=== PATIENT | female | born 1965 | race Caucasian/White ===

== ENCOUNTER 2017-09-01 11:38 | Inpatient (IN) | payer OTHER ==
[2017-09-01] VITALS (420 sets, daily range): BP systolic 131–140; BP diastolic 66–68; PULSE 88–92; TEMP 98.1–98.3; O2SAT 86–100
[~2017-09-01] VITALS: Ht 167.6 cm; Wt 80.4 kg
[~2017-09-01 11:38] MED LIST: AMARYL4 MG PO; ASPIRIN E.C. 8181 MG PO; BIOTIN FORTE3 MG PO; FORTAMET1000 MG PO; GEMCOR600 MG PO; LANTUS100 U/ML; LOTENSIN PO; LOVAZA1 GM PO; MOTRIN 800800 MG/TAB PO; NITROSTAT0.4 MG/TAB SL; NOVOLIN N100 U/ML SC; PHENERGAN 25 TA25 MG PO; PRAVACHOL 40MG40 MG PO; PROZAC 20MG20 MG PO; THERAPEUTIC VIT1 CAP PO; TOPROL XL 25MG25 MG PO; VICODIN 5/5001 UDTAB PO
[2017-09-01 13:58] LABS: ALBUMIN 3.6 gm/dL (3.5-5.0); BILIRUBIN,TOTAL 0.4 mg/dL (0.0-1.0); CALCIUM 9.4 mg/dL (8.4-10.2); CREATININE, serum 1.06 mg/dL (0.52-1.25); POTASSIUM 5.6 mmol/L (3.4-5.0); TOTAL PROTEIN 7.3 gm/dL (6.4-8.2)
[2017-09-01 14:22] LABS: LIPASE 754 U/L (23-300)
[2017-09-01] MEDS ORDERED: HUMALOG100 U/ML SQ (14:28)
[2017-09-01 14:29] LABS: TROPONIN-I < 0.012 ng/mL (0.000-0.034)
[2017-09-01] MEDS ORDERED: BASAGLAR K100 UNIT/1 SQ (14:30)
[2017-09-01] MEDS ORDERED: VASCEPA1 GM PO (16:16)
[2017-09-01] MEDS ORDERED: HYZAAR 25 MG-101 TAB PO (16:17)
[2017-09-01 16:30] LABS: MAGNESIUM 1.3 mg/dL (1.6-2.3); PHOSPHOROUS 4.1 mg/dL (2.5-4.5)
[2017-09-02] VITALS (1296 sets, daily range): BP systolic 107–169; BP diastolic 44–86; PULSE 90–106; TEMP 97.6–98.2; O2SAT 73–100
[2017-09-02 05:42] LABS: BASO # 0.1 (0.0-0.2); BASO % 0.5 % (0.0-2.0); EOS # 0.2 (0.0-0.7); EOS % 1.9 % (0-4.0); GRAN # 9.5 (1.4-6.5); GRAN % 76.1 % (42.2-75.2); LYMPH # 1.7 (1.2-3.4); LYMPH % 13.3 % (20.0-51.0); MEAN CELL VOLUME 87 fl (80.0-100.0); MEAN CORPUSCULAR HGB CONC 33 g/dl (33.0-37.0); MONO % 7.8 % (1.7-9.3); PLATELET COUNT 234 K/mm3 (130-400); RED BLOOD COUNT 2.93 M/mm3 (4.10-5.30); REDCELL DISTRIBUTION WIDTH-CV 13.9 % (11.5-14.5)
[2017-09-02 05:54] LABS: HEMATOCRIT 25.5 % (37.0-47.0); HEMOGLOBIN 8.5 g/dl (12.5-16.0); MEAN CORPUSCULAR HEMOGLOBIN 29 pg (27.0-31.0)
[2017-09-02 06:00] LABS: CALCIUM 7.7 mg/dL (8.4-10.2); CREATININE, serum 0.7 mg/dL (0.52-1.25); POTASSIUM 4.5 mmol/L (3.4-5.0)
[2017-09-03] VITALS (741 sets, daily range): BP systolic 132–150; BP diastolic 62–78; PULSE 78–97; TEMP 97.7–101.6; O2SAT 71–100
[2017-09-03 05:51] LABS: MEAN CELL VOLUME 89 fl (80.0-100.0); MEAN CORPUSCULAR HGB CONC 32 g/dl (33.0-37.0); MEAN PLATELET VOLUME 9.1 fl (7.4-10.4); PLATELET COUNT 252 K/mm3 (130-400); RED BLOOD COUNT 2.85 M/mm3 (4.10-5.30); REDCELL DISTRIBUTION WIDTH-CV 14.1 % (11.5-14.5)
[2017-09-03 06:04] LABS: HEMATOCRIT 25.4 % (37.0-47.0); HEMOGLOBIN 8.2 g/dl (12.5-16.0); MEAN CORPUSCULAR HEMOGLOBIN 29 pg (27.0-31.0)
[2017-09-03 06:07] LABS: ALBUMIN 2.8 gm/dL (3.5-5.0); BILIRUBIN,TOTAL 0.3 mg/dL (0.0-1.0); CALCIUM 7.6 mg/dL (8.4-10.2); CREATININE, serum 0.65 mg/dL (0.52-1.25); MAGNESIUM 2.1 mg/dL (1.6-2.3); PHOSPHOROUS 2.9 mg/dL (2.5-4.5); POTASSIUM 4.9 mmol/L (3.4-5.0); TOTAL PROTEIN 6.2 gm/dL (6.4-8.2)
[2017-09-03 11:25] LABS: IRON,SERUM 11 ug/dL (35-150)
[2017-09-03 11:34] LABS: TOTAL IRON BINDING CAPACITY 223 ug/dL (265-497)
[2017-09-03 12:00] LABS: FERRITIN 263 ng/mL (11-264)
[2017-09-03 12:13] LABS: PH 5 (5-8); SQUAMOUS EPITHELIAL None Seen /hpf; URINE APPEARANCE Clear; URINE BACTERIA Rare /hpf; URINE BILIRUBIN Negative (NEGATIVE); URINE BLOOD Negative (NEGATIVE); URINE COLOR Yellow; URINE GLUCOSE 1+ (NEGATIVE); URINE KETONE Negative (NEGATIVE); URINE LEUKOCYTE ESTERASE Negative (NEGATIVE); URINE NITRATE Negative (NEGATIVE); URINE PROTEIN(semi-quant) 2+ (NEGATIVE); URINE RBC 0-2 /hpf; URINE UROBILINOGEN Negative (NEGATIVE); URINE WBC 0-2 /hpf
[2017-09-03 12:15] LABS: COLLECTION METHOD CLEAN CATCH
[2017-09-04] VITALS (58 sets, daily range): BP systolic 127–174; BP diastolic 67–83; PULSE 68–95; TEMP 97.9–98.8; O2SAT 88–97
[2017-09-04 05:56] LABS: BASO % 0.3 % (0.0-2.0); EOS # 0.4 (0.0-0.7); EOS % 3.6 % (0-4.0); GRAN # 9.7 (1.4-6.5); GRAN % 78.1 % (42.2-75.2); HEMATOCRIT 24.4 % (37.0-47.0); HEMOGLOBIN 7.9 g/dl (12.5-16.0); LYMPH # 1.3 (1.2-3.4); LYMPH % 10.7 % (20.0-51.0); MEAN CELL VOLUME 88 fl (80.0-100.0); MEAN CORPUSCULAR HEMOGLOBIN 29 pg (27.0-31.0); MEAN CORPUSCULAR HGB CONC 32 g/dl (33.0-37.0); MEAN PLATELET VOLUME 9.1 fl (7.4-10.4); MONO # 0.8 (0.1-0.6); MONO % 6.6 % (1.7-9.3); PLATELET COUNT 264 K/mm3 (130-400); RED BLOOD COUNT 2.76 M/mm3 (4.10-5.30); REDCELL DISTRIBUTION WIDTH-CV 13.9 % (11.5-14.5)
[2017-09-04 06:02] LABS: CALCIUM 7.7 mg/dL (8.4-10.2); CREATININE, serum 0.54 mg/dL (0.52-1.25); POTASSIUM 4.7 mmol/L (3.4-5.0)
[2017-09-05] VITALS (7 sets, daily range): BP systolic 125–173; BP diastolic 70–83; PULSE 85–98; TEMP 97.5–98.8
[2017-09-05 05:38] LABS: ALANINE AMINOTRANSFERASE 44 U/L (9-52); ALBUMIN 2.9 gm/dL (3.5-5.0); ALKALINE PHOSPHATASE 143 U/L (50-136); ANION GAP 8 mmol/L (7-16); AST,SGOT 31 U/L (15-37); BILIRUBIN,TOTAL 0.5 mg/dL (0.0-1.0); BLOOD UREA NITROGEN 4 mg/dL (7-17); CALCIUM 7.8 mg/dL (8.4-10.2); CARBON DIOXIDE 19 mmol/L (22-30); CHLORIDE 106 mmol/L (98-107); CHOLESTEROL 325 mg/dL (120-200); CHOLESTEROL RISK RATIO 11.6; CREATININE, serum 0.56 mg/dL (0.52-1.25); GLUCOSE 195 mg/dL (74-106); LIPASE 63 U/L (23-300); MAGNESIUM 1.5 mg/dL (1.6-2.3); POTASSIUM 4.9 mmol/L (3.4-5.0); SODIUM 133 mmol/L (137-145); TOTAL PROTEIN 6.7 gm/dL (6.4-8.2)
[2017-09-05 05:43] LABS: BASO # 0.1 (0.0-0.2); BASO % 0.5 % (0.0-2.0); EOS # 0.4 (0.0-0.7); EOS % 3.5 % (0-4.0); GRAN # 9.6 (1.4-6.5); GRAN % 77.7 % (42.2-75.2); HEMATOCRIT 25.2 % (37.0-47.0); HEMOGLOBIN 7.9 g/dl (12.5-16.0); LYMPH # 1.2 (1.2-3.4); LYMPH % 9.9 % (20.0-51.0); MEAN CELL VOLUME 90 fl (80.0-100.0); MEAN CORPUSCULAR HEMOGLOBIN 28 pg (27.0-31.0); MEAN CORPUSCULAR HGB CONC 31 g/dl (33.0-37.0); MEAN PLATELET VOLUME 9.3 fl (7.4-10.4); MONO # 0.9 (0.1-0.6); MONO % 7.4 % (1.7-9.3); PLATELET COUNT 315 K/mm3 (130-400); RED BLOOD COUNT 2.79 M/mm3 (4.10-5.30); REDCELL DISTRIBUTION WIDTH-CV 13.8 % (11.5-14.5)
[2017-09-05 05:48] LABS: TRIGLYCERIDE 649 mg/dL
[2017-09-06 03:20] VITALS: BP 176/82; PULSE 88; TEMP 99.1
[2017-09-06 06:34] LABS: MEAN CELL VOLUME 89 fl (80.0-100.0); MEAN CORPUSCULAR HGB CONC 32 g/dl (33.0-37.0); MEAN PLATELET VOLUME 9.4 fl (7.4-10.4); PLATELET COUNT 377 K/mm3 (130-400); REDCELL DISTRIBUTION WIDTH-CV 13.7 % (11.5-14.5)
[2017-09-06 06:39] LABS: HEMATOCRIT 26.8 % (37.0-47.0); HEMOGLOBIN 8.5 g/dl (12.5-16.0); MEAN CORPUSCULAR HEMOGLOBIN 28 pg (27.0-31.0)
[2017-09-06 06:51] LABS: CALCIUM 8.6 mg/dL (8.4-10.2); CREATININE, serum 0.55 mg/dL (0.52-1.25); MAGNESIUM 1.4 mg/dL (1.6-2.3); POTASSIUM 4.8 mmol/L (3.4-5.0)
[2017-09-06 07:17] LABS: BAND 10 % (0-10); EOSINOPHIL 3 % (0-4); LYMPHOCYTE 15 % (20.0-51.0); NEUTROPHILS 69 % (42.0-75.2)
[2017-09-06 07:18] LABS: HYPOCHROMIA 2+; PLATELET ESTIMATE NORMAL (NORMAL)
[2017-09-06 07:35] VITALS: BP 166/80; PULSE 92; TEMP 100.6
[2017-09-06 12:04] VITALS: BP 139/71; PULSE 81; TEMP 101.1
[2017-09-06 16:44] VITALS: BP 153/72; PULSE 88; TEMP 100.3
[2017-09-06 19:21] LABS: MUCOUS Present /lpf; PH 5 (5-8); SQUAMOUS EPITHELIAL 0-2 /hpf; URINE APPEARANCE Clear; URINE BACTERIA None Seen /hpf; URINE BILIRUBIN Negative (NEGATIVE); URINE BLOOD Negative (NEGATIVE); URINE COLOR Yellow; URINE GLUCOSE 1+ (NEGATIVE); URINE KETONE 1+ (NEGATIVE); URINE LEUKOCYTE ESTERASE Negative (NEGATIVE); URINE NITRATE Negative (NEGATIVE); URINE PROTEIN(semi-quant) 2+ (NEGATIVE); URINE RBC 0-2 /hpf; URINE UROBILINOGEN Negative (NEGATIVE)
[2017-09-06 19:24] LABS: COLLECTION METHOD CLEAN CATCH
[2017-09-06 20:01] VITALS: BP 142/66; PULSE 80; TEMP 99
[2017-09-07] VITALS (8 sets, daily range): BP systolic 130–181; BP diastolic 62–86; PULSE 57–84; TEMP 97.5–100.3
[2017-09-07 06:59] LABS: BASO # 0.1 (0.0-0.2); BASO % 0.6 % (0.0-2.0); EOS # 0.3 (0.0-0.7); EOS % 3.1 % (0-4.0); GRAN % 75.2 % (42.2-75.2); LYMPH # 1.1 (1.2-3.4); LYMPH % 10.6 % (20.0-51.0); MEAN CELL VOLUME 87 fl (80.0-100.0); MEAN CORPUSCULAR HGB CONC 33 g/dl (33.0-37.0); MEAN PLATELET VOLUME 9.6 fl (7.4-10.4); MONO # 0.7 (0.1-0.6); MONO % 6.6 % (1.7-9.3); PLATELET COUNT 450 K/mm3 (130-400); RED BLOOD COUNT 2.92 M/mm3 (4.10-5.30); REDCELL DISTRIBUTION WIDTH-CV 13.6 % (11.5-14.5)
[2017-09-07 07:04] LABS: ALBUMIN 3.1 gm/dL (3.5-5.0); BILIRUBIN,TOTAL 0.3 mg/dL (0.0-1.0); CALCIUM 8.9 mg/dL (8.4-10.2); CREATININE, serum 0.56 mg/dL (0.52-1.25); MAGNESIUM 1.5 mg/dL (1.6-2.3); POTASSIUM 3.8 mmol/L (3.4-5.0)
[2017-09-07 07:14] LABS: HEMATOCRIT 25.3 % (37.0-47.0); HEMOGLOBIN 8.3 g/dl (12.5-16.0); MEAN CORPUSCULAR HEMOGLOBIN 28 pg (27.0-31.0)
[2017-09-07 14:36] LABS: INR 1.2 (0.8-3.0); PROTHROMBIN TIME 14.3 SECONDS (9.7-12.8)
[2017-09-08 03:56] VITALS: BP 161/62; PULSE 65; TEMP 97.7
[2017-09-08 07:13] LABS: MEAN CELL VOLUME 87 fl (80.0-100.0); MEAN CORPUSCULAR HGB CONC 32 g/dl (33.0-37.0); MEAN PLATELET VOLUME 9.5 fl (7.4-10.4); PLATELET COUNT 519 K/mm3 (130-400); RED BLOOD COUNT 3.28 M/mm3 (4.10-5.30); REDCELL DISTRIBUTION WIDTH-CV 13.6 % (11.5-14.5)
[2017-09-08 07:21] LABS: HEMATOCRIT 28.5 % (37.0-47.0); HEMOGLOBIN 9.2 g/dl (12.5-16.0); MEAN CORPUSCULAR HEMOGLOBIN 28 pg (27.0-31.0)
[2017-09-08 07:24] LABS: ALBUMIN 3.3 gm/dL (3.5-5.0); BILIRUBIN,TOTAL 0.3 mg/dL (0.0-1.0); CALCIUM 9.3 mg/dL (8.4-10.2); CREATININE, serum 0.58 mg/dL (0.52-1.25); POTASSIUM 3.4 mmol/L (3.4-5.0); TOTAL PROTEIN 7.9 gm/dL (6.4-8.2)
[2017-09-08 07:52] VITALS: BP 177/74; PULSE 83; TEMP 100.4
[2017-09-08 08:05] LABS: BAND 32 % (0-10); BASOPHIL 2 % (0-2); EOSINOPHIL 4 % (0-4); LYMPHOCYTE 14 % (20.0-51.0); NEUTROPHILS 45 % (42.0-75.2)
[2017-09-08 08:06] LABS: PLATELET ESTIMATE INCREASED (NORMAL); POLYCHROMASIA 1+
[2017-09-08 12:15] VITALS: BP 145/73; PULSE 73; TEMP 98.4
[2017-09-08 16:16] VITALS: BP 166/62; PULSE 79; TEMP 99.1
[2017-09-08 20:37] VITALS: BP 168/67; PULSE 80; TEMP 98.9
[2017-09-09 00:07] VITALS: BP 160/70; PULSE 67; TEMP 98
[2017-09-09 05:15] VITALS: BP 170/68; PULSE 72; TEMP 98.4
[2017-09-09 07:05] LABS: MEAN CELL VOLUME 87 fl (80.0-100.0); MEAN CORPUSCULAR HGB CONC 32 g/dl (33.0-37.0); MEAN PLATELET VOLUME 9.5 fl (7.4-10.4); PLATELET COUNT 518 K/mm3 (130-400); RED BLOOD COUNT 3.28 M/mm3 (4.10-5.30); REDCELL DISTRIBUTION WIDTH-CV 13.6 % (11.5-14.5)
[2017-09-09 07:06] LABS: HEMATOCRIT 28.5 % (37.0-47.0); HEMOGLOBIN 9.2 g/dl (12.5-16.0); MEAN CORPUSCULAR HEMOGLOBIN 28 pg (27.0-31.0)
[2017-09-09 07:11] LABS: CALCIUM 9.3 mg/dL (8.4-10.2); CREATININE, serum 0.64 mg/dL (0.52-1.25); POTASSIUM 3.9 mmol/L (3.4-5.0)
[2017-09-09 07:42] LABS: ALBUMIN 3.2 gm/dL (3.5-5.0); BILIRUBIN,TOTAL 0.3 mg/dL (0.0-1.0); TOTAL PROTEIN 7.3 gm/dL (6.4-8.2)
[2017-09-09 07:44] VITALS: BP 172/71; PULSE 77; TEMP 98.9
[2017-09-09 07:51] LABS: BILIRUBIN,DIRECT 0.2 mg/dL (0.0-0.4)
[2017-09-09 08:55] LABS: BAND 2 % (0-10); LYMPHOCYTE 27 % (20.0-51.0); NEUTROPHILS 69 % (42.0-75.2); PLATELET ESTIMATE INCREASED (NORMAL)
[2017-09-09 11:43] VITALS: BP 153/66; PULSE 64; TEMP 98.5
[2017-09-09] MEDS ORDERED: FLAGYL500 MG PO (13:04)
[2017-09-09] MEDS ORDERED: CIPRO 500MG TA500 MG PO (13:06)
[2017-09-09] MEDS ORDERED: NORCO 325 MG-51 TAB PO (13:09)
== END 2017-09-09 15:00 | disposition home or self-care (01) | DRG 439 ==
LOC: COL.ER 11:38 → ICU 15:07 → MEDICAL 09-05 13:49
PROVIDERS: Emergency Medicine; Nurse Practitioner Family; Physician Assistant
DX: K85.90 Acute pancreatitis without necrosis or infection, unspecified (principal); J90 Pleural effusion, not elsewhere classified; E11.9 Type 2 diabetes mellitus without complications; E83.42 Hypomagnesemia; E87.5 Hyperkalemia; E78.1 Pure hyperglyceridemia; I10 Essential (primary) hypertension; Z79.4 Long term (current) use of insulin; F17.210 Nicotine dependence, cigarettes, uncomplicated; D50.0 Iron deficiency anemia secondary to blood loss (chronic); K42.9 Umbilical hernia without obstruction or gangrene
CPT/HCPCS: 99223-AI; 99232-AI; 99233-AI; 99239; A9284; C9113; J0696; J1170; J1650; J1815; J1940; J2405; J2916; J3475; J3480; J7030; Q9967

== ENCOUNTER 2017-10-03 17:54 | Emergency (ER) | payer OTHER ==
[~2017-10-03 17:54] MED LIST changes: +BASAGLAR K100 UNIT/1 SQ; +CIPRO 500MG TA500 MG PO; +FLAGYL500 MG PO; +HUMALOG100 U/ML SQ; +HYZAAR 25 MG-101 TAB PO; +NORCO 325 MG-51 TAB PO; +VASCEPA1 GM PO
[2017-10-03 18:29] LABS: BASO # 0.1 (0.0-0.2); BASO % 1.2 % (0.0-2.0); EOS # 0.2 (0.0-0.7); EOS % 2.8 % (0-4.0); GRAN # 4.6 (1.4-6.5); GRAN % 60.2 % (42.2-75.2); LYMPH % 26.9 % (20.0-51.0); MEAN CELL VOLUME 91 fl (80.0-100.0); MEAN CORPUSCULAR HGB CONC 32 g/dl (33.0-37.0); MONO # 0.7 (0.1-0.6); MONO % 8.6 % (1.7-9.3); PLATELET COUNT 250 K/mm3 (130-400)
[2017-10-03 18:30] VITALS: TEMP 97
[2017-10-03 18:32] LABS: HEMATOCRIT 30.8 % (37.0-47.0); HEMOGLOBIN 9.9 g/dl (12.5-16.0); MEAN CORPUSCULAR HEMOGLOBIN 29 pg (27.0-31.0)
[2017-10-03 18:36] LABS: ALBUMIN 4.3 gm/dL (3.5-5.0); BILIRUBIN,TOTAL 0.2 mg/dL (0.0-1.0); CREATININE, serum 0.92 mg/dL (0.52-1.25); POTASSIUM 5.4 mmol/L (3.4-5.0); TOTAL PROTEIN 8.7 gm/dL (6.4-8.2)
[2017-10-03 20:06] VITALS: BP 140/83; PULSE 68
== END 2017-10-03 20:11 | disposition home or self-care (01) ==
LOC: COL.ER 17:54
PROVIDERS: Emergency Medicine
DX: R41.0 Disorientation, unspecified (principal); T38.3X5A Adverse effect of insulin and oral hypoglycemic [antidiabetic] drugs, initial encounter; E78.5 Hyperlipidemia, unspecified; E11.649 Type 2 diabetes mellitus with hypoglycemia without coma; I10 Essential (primary) hypertension; Z79.82 Long term (current) use of aspirin; Z79.84 Long term (current) use of oral hypoglycemic drugs
CPT/HCPCS: J7030

== ENCOUNTER → 2018-10-04 | Outpatient (CLI) | payer OTHER | LOC: SUN.DIA 14:03 | DX: O24.419 Gestational diabetes mellitus in pregnancy, unspecified control (principal); E11.40 Type 2 diabetes mellitus with diabetic neuropathy, unspecified; E78.5 Hyperlipidemia, unspecified; I10 Essential (primary) hypertension | CPT/HCPCS: G0108 ==

== ENCOUNTER → 2018-10-13 | Outpatient (CLI) | payer OTHER | LOC: SUN.DIA 08:42 | DX: E11.40 Type 2 diabetes mellitus with diabetic neuropathy, unspecified (principal); E78.5 Hyperlipidemia, unspecified; I10 Essential (primary) hypertension; Z79.4 Long term (current) use of insulin | CPT/HCPCS: G0108 ==

== ENCOUNTER → 2018-10-26 | Outpatient (CLI) | payer OTHER | LOC: SUN.DIA 09:57 | DX: E11.40 Type 2 diabetes mellitus with diabetic neuropathy, unspecified (principal); E78.5 Hyperlipidemia, unspecified; I10 Essential (primary) hypertension | CPT/HCPCS: G0109 ==

== ENCOUNTER → 2018-11-02 | Outpatient (CLI) | payer OTHER | LOC: SUN.DIA 11:39 | DX: E11.40 Type 2 diabetes mellitus with diabetic neuropathy, unspecified (principal); E78.5 Hyperlipidemia, unspecified; I10 Essential (primary) hypertension; Z79.4 Long term (current) use of insulin | CPT/HCPCS: G0109 ==

== ENCOUNTER → 2018-11-08 | Outpatient (CLI) | payer OTHER | LOC: SUN.DIA 08:48 | DX: E11.9 Type 2 diabetes mellitus without complications (principal); E78.5 Hyperlipidemia, unspecified; I10 Essential (primary) hypertension; E11.40 Type 2 diabetes mellitus with diabetic neuropathy, unspecified; Z79.4 Long term (current) use of insulin | CPT/HCPCS: G0108 ==

== ENCOUNTER → 2018-11-09 | Outpatient (CLI) | payer OTHER | LOC: SUN.DIA 14:43 | DX: E11.9 Type 2 diabetes mellitus without complications (principal); I10 Essential (primary) hypertension; E78.5 Hyperlipidemia, unspecified; E11.40 Type 2 diabetes mellitus with diabetic neuropathy, unspecified | CPT/HCPCS: G0109 ==

== ENCOUNTER → 2018-11-16 | Outpatient (CLI) | payer OTHER | LOC: SUN.DIA 11:15 → DIA.ED 18:00 → SUN.DIA 18:00 | DX: E11.40 Type 2 diabetes mellitus with diabetic neuropathy, unspecified (principal); E78.5 Hyperlipidemia, unspecified; I10 Essential (primary) hypertension; Z79.4 Long term (current) use of insulin | CPT/HCPCS: G0109 ==

== ENCOUNTER → 2018-12-14 | Outpatient (CLI) | payer OTHER | LOC: DIA.ED 13:52 | DX: E11.9 Type 2 diabetes mellitus without complications (principal); Z79.4 Long term (current) use of insulin; E11.40 Type 2 diabetes mellitus with diabetic neuropathy, unspecified; E78.5 Hyperlipidemia, unspecified | CPT/HCPCS: G0108 ==

== ENCOUNTER → 2019-01-10 | Outpatient (CLI) | payer OTHER | LOC: DIA.ED 09:27 | DX: E11.9 Type 2 diabetes mellitus without complications (principal); E78.5 Hyperlipidemia, unspecified; I10 Essential (primary) hypertension; E11.40 Type 2 diabetes mellitus with diabetic neuropathy, unspecified; Z79.4 Long term (current) use of insulin | CPT/HCPCS: G0108 ==

== ENCOUNTER → 2019-03-14 | Outpatient (CLI) | payer OTHER | LOC: DIA.ED 09:22 | DX: E11.40 Type 2 diabetes mellitus with diabetic neuropathy, unspecified (principal); E78.5 Hyperlipidemia, unspecified; I10 Essential (primary) hypertension; Z79.4 Long term (current) use of insulin | CPT/HCPCS: G0108 ==

== ENCOUNTER → 2019-06-19 | Outpatient (CLI) | payer OTHER | LOC: DIA.ED 14:51 | DX: Z02.89 Encounter for other administrative examinations (principal) ==

== ENCOUNTER → 2019-08-03 | Outpatient (CLI) | payer OTHER | LOC: COL.LAB 17:32 | DX: R07.89 Other chest pain (principal) ==

== ENCOUNTER 2020-10-21 19:12 | Inpatient (IN) | payer OTHER ==
[~2020-10-21] VITALS: Ht 167.6 cm; Wt 79.0 kg
[~2020-10-21 19:12] MED LIST changes: +MULTIVITAMIN FO1 CAP PO; -THERAPEUTIC VIT1 CAP PO
[2020-10-21] MEDS ORDERED: EPA FISH OIL1 SGL PO (19:51)
[2020-10-21] MEDS ORDERED: COZAAR100 MG PO (19:54)
[2020-10-21] MEDS ORDERED: NATURAL IRON65 MG (19:56)
[2020-10-21] MEDS ORDERED: AMARYL4 MG PO (19:57)
[2020-10-21] MEDS ORDERED: JARDIANCE10 (19:57)
[2020-10-21] MEDS ORDERED: LOFIBRA160 MG PO (19:58)
[2020-10-21] MEDS ORDERED: HCTZ 25MG TAB25 MG PO (19:58)
[2020-10-21] MEDS ORDERED: PRAVACHOL 40MG40 MG PO (19:59)
[2020-10-21 20:12] LABS: ALBUMIN 4.4 gm/dL (3.5-5.0); BILIRUBIN,TOTAL 0.3 mg/dL (0.0-1.0); CALCIUM 8.9 mg/dL (8.4-10.2); CREATININE, serum 1.1 (0.52-1.25); POTASSIUM 4.1 mmol/L (3.4-5.0)
[2020-10-21 20:13] LABS: BASO # 0.1 (0.0-0.2); EOS # 0.3 (0.0-0.7); EOS % 3.8 % (0-4.0); GRAN % 59.3 % (42.2-75.2); HEMOGLOBIN 11.4 g/dl (12.5-16.0); LYMPH # 1.8 (1.2-3.4); MEAN CELL VOLUME 88 fl (80.0-100.0); MEAN CORPUSCULAR HEMOGLOBIN 30 pg (27.0-31.0); MEAN CORPUSCULAR HGB CONC 34 g/dl (33.0-37.0); MEAN PLATELET VOLUME 9.9 fl (7.4-10.4); MONO # 0.5 (0.1-0.6); MONO % 7.6 % (1.7-9.3); PLATELET COUNT 357 K/mm3 (130-400); RED BLOOD COUNT 3.87 M/mm3 (4.10-5.30); REDCELL DISTRIBUTION WIDTH-CV 14.4 % (11.5-14.5)
--- NOTE | 2020-10-21 20:55 | NUR ---
PT ARRIVES VIA CART TO ROOM 325.
[2020-10-21 21:16] VITALS: BP 169/63; PULSE 80; TEMP 97.8
--- NOTE | 2020-10-21 22:01 | NUR ---
MEDICATED WITH HS MEDS, FLEXERIL AND MORPHINE 2MG IVP AT THIS TIME. PAIN TO RIGHT LEG AND SHOULDER 10/10. IS ALERT AND ORIENTED X4.
--- NOTE | 2020-10-21 22:11 | NUR ---
NORCO 1 TAB PO GIVEN FOR PAIN TO RT SHOULDER AND RT LEG. ADMISSION QUESTIONS COMPLETED.
[2020-10-21] MEDS ORDERED: GLUCOPHAGE1000 MG PO (22:27)
[2020-10-21] MEDS ORDERED: TOUJEO300 U/ML SQ (22:27)
[2020-10-21] MEDS ORDERED: TOPROL XL 50MG50 MG PO (22:31)
--- NOTE | 2020-10-21 22:57 | NUR ---
#16fr Oconnell inserted and placed to BSD. Immediate return of yellow urine.
[2020-10-21 23:05] LABS: COLLECTION METHOD CLEAN CATCH
[2020-10-21 23:12] LABS: MUCOUS Present /lpf; PH 5 (5-8); SQUAMOUS EPITHELIAL 0-2 /hpf; URINE APPEARANCE Hazy; URINE BACTERIA None Seen /hpf; URINE BILIRUBIN Negative (NEGATIVE); URINE BLOOD Negative (NEGATIVE); URINE COLOR Yellow; URINE GLUCOSE 3+ (NEGATIVE); URINE KETONE Negative (NEGATIVE); URINE LEUKOCYTE ESTERASE Negative (NEGATIVE); URINE NITRATE Negative (NEGATIVE); URINE PROTEIN(semi-quant) 1+ (NEGATIVE); URINE UROBILINOGEN Negative (NEGATIVE)
[2020-10-22] VITALS (14 sets, daily range): BP systolic 88–152; BP diastolic 42–74; PULSE 63–76; TEMP 97.5–98.2
--- NOTE | 2020-10-22 00:12 | NUR ---
PT WITH RT SHOULDER AND RT LEG PAIN. MORPHINE 2MG IVP GIVEN AND ICE PACK PLACED TO RIGHT HIP. IVF INITIATED TO RIGHT AC SITE, INFUSING WITHOUT REDNESS OR SWELLING.
--- NOTE | 2020-10-22 04:19 | NUR ---
MEDICATED WITH MORPHINE 2MG IVP FOR RT SHOULDER AND RT HIP PAIN. ICE PACK PLACED TO RIGHT SHOULDER, ELEVATED ARM ON PILLOW.
[2020-10-22 06:08] LABS: BASO # 0.1 (0.0-0.2); BASO % 0.9 % (0.0-2.0); EOS # 0.2 (0.0-0.7); EOS % 1.7 % (0-4.0); GRAN # 6.6 (1.4-6.5); GRAN % 71.5 % (42.2-75.2); HEMOGLOBIN 11.1 g/dl (12.5-16.0); LYMPH # 1.8 (1.2-3.4); LYMPH % 19.5 % (20.0-51.0); MEAN CELL VOLUME 89 fl (80.0-100.0); MEAN CORPUSCULAR HEMOGLOBIN 29 pg (27.0-31.0); MEAN CORPUSCULAR HGB CONC 32 g/dl (33.0-37.0); MEAN PLATELET VOLUME 9.7 fl (7.4-10.4); MONO # 0.5 (0.1-0.6); MONO % 5.9 % (1.7-9.3); PLATELET COUNT 308 K/mm3 (130-400); RED BLOOD COUNT 3.86 M/mm3 (4.10-5.30); REDCELL DISTRIBUTION WIDTH-CV 14.6 % (11.5-14.5)
[2020-10-22 06:18] LABS: HEMATOCRIT 34.4 % (37.0-47.0)
[2020-10-22 06:22] LABS: CREATININE, serum 0.88 (0.52-1.25); POTASSIUM 4.3 mmol/L (3.4-5.0)
--- NOTE | 2020-10-22 12:42 | NUR ---
Investment Specialist was unable to meet with patient for intake as she is currently in surgery. SW met with patient's mother, Glendy Diaz" (ph#[phone]) who answered intake questions for patient. Patient lives in [place] with her , Clinton (ph#[phone]) and sees Dr. Snyder for primary care. Patient obtains medications from [facility] and Mónica advised patient sometimes has difficulties affording her medications. Patient is employed at [employer] and is normally independent with ADLS. Patient does not normally use any DME but Mónica advised if patient needs a walker, she has one. Mónica is unsure if patient has ever completed DPOA-HC and VELIA did not locate copy in EMR. PT/OT to evaluate patient after surgery. VELIA will continue to follow for recommendations. Mónica advised she thinks patient may stay with her after discharge but isn't sure. Discharge Plan: Pending PT/OT evaluation.
--- NOTE | 2020-10-22 14:44 | NUR ---
First visit from the film replacement orderer. No needs right now.
--- NOTE | 2020-10-22 15:20 | NUR ---
PATIENT IN OR AT THIS TIME.
--- NOTE | 2020-10-22 16:00 | NUR ---
PATIENT BACK IN ROOM POST OP. A&O. VSS. C/O MILD BURNING IN INCISION. AQUACEL DRESSING TO RIGHT HIP IS CD&I WITH ICE PACK INPLACE. PATIENT IS ABLE TO WIGGLE RLE TOES BUT IS UNABLE TO MOVE LLE. TEDS & SCD'S TO BLE. POSITIVE PEDAL PULSES TO BLE. REBOLLAR TO DD WITH SMALL AMOUNTS OF HAZY, YELLOW URINE NOTED. IV FLUIDS INFUSING VIA GRAVITY. HEAD TO TOE ASSESSMENT WNL. FAMILY AT BEDSIDE. CALL LIGHT IN REACH.
--- NOTE | 2020-10-22 18:08 | NUR ---
Patient resting in bed at this time. Patient is sleepy but rouses easily, is alert and oriented while awake. Sensation has returned to extremities and patient is able to move both feet and legs on bed, hip abductor wedge in place. Post op checks continue. Patient reports that she is not feeling hungry at this time, will attempt to eat later. Denies pain or needs at this time, call light within reach.
--- NOTE | 2020-10-22 21:13 | NUR ---
Patient assessed around 2009. Alert and oriented x 4, and able to make needs known. Reported level 8, aching pain to right hip. Given PRN Sullivan for pain. Peripheral IV to right AC with fluids running per orders. Site without redness, warmth, swelling, and pain. Denies having SOB and dyspnea. LS CTA. Respirations even and unlabored. On oxygen at 2 L/min via NC. HRR. Capillary refill less than 3 seconds. Non-tenting skin turgor. BSAx4. Abdomen soft and non-tender. Indwelling lopez catheter draining clear yellow urine via dependent drainage. Dressing to right hip surgical site is CDI. Ice to site. AMRIT hose and SCDs on. Hip abduction foam is in place. Patient voices no questions, needs, or concerns at this time. Resting in bed with call light within reach.
--- NOTE | 2020-10-22 21:45 | NUR ---
Patient given PRN Roxicodone for pain at this time. Patient also stated that she was feeling as if she had to urinate. Catheter draining urine slowly, but slightly kinked due to abductor pillow. Abductor pillow moved down slightly, and straightened catheter tubing, causing more urine output. Patient stated it felt better. Voices no further questions, needs, or concerns at this time. Resting in bed with call light within reach.
--- NOTE | 2020-10-23 02:27 | NUR ---
Patient given PRN Roxicodone for level 5 pain to right hip at this time.
[2020-10-23 04:23] VITALS: BP 132/58; PULSE 75; TEMP 97.8
--- NOTE | 2020-10-23 05:31 | NUR ---
Patient continues to have pain to right hip. Given 2nd dose of Roxicodone at this time. IV fluids continue per orders. Continues on Ancef. Indwelling lopez catheter patent with clear yellow urine. Ice to right hip. Voices no further questions, needs, or concerns at this time. Resting in bed with call light within reach.
[2020-10-23 05:51] LABS: BASO # 0.1 (0.0-0.2); BASO % 0.7 % (0.0-2.0); EOS # 0.2 (0.0-0.7); EOS % 1.8 % (0-4.0); GRAN # 6.7 (1.4-6.5); GRAN % 76.8 % (42.2-75.2); LYMPH # 1.1 (1.2-3.4); LYMPH % 12.3 % (20.0-51.0); MEAN CELL VOLUME 89 fl (80.0-100.0); MEAN CORPUSCULAR HGB CONC 32 g/dl (33.0-37.0); MEAN PLATELET VOLUME 9.7 fl (7.4-10.4); MONO # 0.7 (0.1-0.6); MONO % 7.9 % (1.7-9.3); PLATELET COUNT 252 K/mm3 (130-400); RED BLOOD COUNT 3.27 M/mm3 (4.10-5.30); REDCELL DISTRIBUTION WIDTH-CV 14.7 % (11.5-14.5)
[2020-10-23 05:55] LABS: HEMATOCRIT 29.2 % (37.0-47.0); HEMOGLOBIN 9.3 g/dl (12.5-16.0); MEAN CORPUSCULAR HEMOGLOBIN 28 pg (27.0-31.0)
[2020-10-23 06:03] LABS: CALCIUM 8.7 mg/dL (8.4-10.2); CREATININE, serum 0.91 (0.52-1.25); POTASSIUM 4.5 mmol/L (3.4-5.0)
[2020-10-23 07:38] VITALS: BP 137/56; PULSE 81; TEMP 98.6
--- NOTE | 2020-10-23 09:34 | NUR ---
Initial visit; Patient thanked Milling Machine Set Up Operator for looking in on her and offering God's blessings. Patient is in considerable pain, Milling Machine Set Up Operator will keep Buffy in her prayers.
[2020-10-23 11:30] VITALS: BP 118/70; PULSE 80; TEMP 97.9
[2020-10-23 15:37] VITALS: BP 127/63; PULSE 84; TEMP 99.3
--- NOTE | 2020-10-23 16:19 | NUR ---
Optometric Technician met with patient to discuss PT recommendation for Inpatient Rehab. Patient is open to an IPR screen. SW discussed a second preference and reviewed the three local SNFs. Patient's daughter, Ebony is also at bedside during this discussion. Patient would like a referral sent to [facility] as a second preference. SW contacted Matthew at [facility] and faxed a referral. Discharge Plan: Pending screens from [facility] and [facility].
--- NOTE | 2020-10-23 16:40 | NUR ---
Patient resting in bed at this time, rouses easily and is alert and oriented while awake. Patient up with therapy today, patient reports significant pain while up and with any movement. PRN pain medication given per patient request. CMS intact. Patient denies needs at this time, call light within reach.
[2020-10-23 20:45] VITALS: BP 148/57; PULSE 84; TEMP 98.5
--- NOTE | 2020-10-23 22:56 | NUR ---
Patient assessed around 2150. Alert and oriented x 4, and able to make needs known. Reported level 8 pain to right hip. Given PRN Roxicodone as requested for pain. Periphereal INT to right AC. Denies SOB and dyspnea. LS CTA. Respirations even and unlabored. HRR. Capillary refill less than 3 seconds. Non-tenting skin turgor. BSAx4. Abdomen soft and non-tender. No edema. Dressing to right hip CDI. SCDs and Luis hose are on. Indwelling lopez catheter patent, and draining clear yellow urine via dependent drainage. Voices no questions, needs, or concerns at this time. Resting in bed with call light within reach.
[2020-10-24] VITALS (7 sets, daily range): BP systolic 121–138; BP diastolic 54–67; PULSE 76–88; TEMP 98.4–100.4
--- NOTE | 2020-10-24 05:38 | NUR ---
Patient has been resting in bed with call light within reach. Has voiced no questions, needs, or concerns at this time. Has not requested any pain medication since given PRN Roxicodone around 2200.
[2020-10-24 06:47] LABS: HEMATOCRIT 28.4 % (37.0-47.0); HEMOGLOBIN 8.8 g/dl (12.5-16.0)
[2020-10-24 06:51] LABS: CALCIUM 10.2 mg/dL (8.4-10.2); CREATININE, serum 1.15 (0.52-1.25); POTASSIUM 4.7 mmol/L (3.4-5.0)
--- NOTE | 2020-10-24 07:14 | NUR ---
Pt having pain 10/31. Was unable to lift leg off bed to put on pillow due to pain. Pain medication given. Encouraged pt to look at her breakfast menu to get something ordered. No other needs verbalized at this time
--- NOTE | 2020-10-24 08:57 | NUR ---
Pt appears to be doing well at this time. She has had and tolerated breakfast with no complaints. Pt reports that the pain medication given earlier helped. She reports not having any pain. Her right leg was sliding off the pillow, but pt was not able to move leg by herself back on to the pillow. I assisted and she grimmaced in pain. Informed pt that I will most likely take the catheter out today. she then stated that she will have to use a bedpan. I educated that she will need to start getting up and that she can use the bedside commode if unable to make it to the restroom. Pt denies any other needs
--- NOTE | 2020-10-24 14:22 | NUR ---
Type Rolling Machine Operator collaborated with Yessy from [facility] who advised they are plannign to accept once insurance authorization is obtained. Discharge Plan: [facility] pending insurance auth
--- NOTE | 2020-10-24 16:29 | NUR ---
Pt resting in bed at this time, reports that her pain is tolerable
--- NOTE | 2020-10-24 17:59 | NUR ---
Pt has overall done well today. She does get up with one assist. Appears to have a lot of pain with movement, but does not rate her pain very high. PRN pain medication given throughout the day. Pt was to transfer to [facility], awaiting insurance approval.
--- NOTE | 2020-10-24 21:00 | NUR ---
PT REASTING IN BED WATCHING TV. FALL ASLEEP. NO DISTRESS. NO NEEDS AT THIS TIME.
[2020-10-25 03:29] VITALS: BP 119/58; PULSE 75; TEMP 98.6
[2020-10-25 06:55] LABS: BASO # 0.1 (0.0-0.2); BASO % 0.8 % (0.0-2.0); EOS # 0.3 (0.0-0.7); EOS % 3.2 % (0-4.0); LYMPH # 1.4 (1.2-3.4); LYMPH % 15.8 % (20.0-51.0); MEAN CELL VOLUME 90 fl (80.0-100.0); MEAN CORPUSCULAR HGB CONC 31 g/dl (33.0-37.0); MONO # 0.8 (0.1-0.6); PLATELET COUNT 283 K/mm3 (130-400); RED BLOOD COUNT 2.95 M/mm3 (4.10-5.30); REDCELL DISTRIBUTION WIDTH-CV 14.6 % (11.5-14.5)
[2020-10-25 06:58] LABS: HEMATOCRIT 26.4 % (37.0-47.0); HEMOGLOBIN 8.2 g/dl (12.5-16.0); MEAN CORPUSCULAR HEMOGLOBIN 28 pg (27.0-31.0)
[2020-10-25 07:07] LABS: CALCIUM 10.5 mg/dL (8.4-10.2); CREATININE, serum 1.46 (0.52-1.25); POTASSIUM 4.4 mmol/L (3.4-5.0)
[2020-10-25 08:09] VITALS: BP 130/69; PULSE 73; TEMP 98.4
--- NOTE | 2020-10-25 08:16 | NUR ---
pt doing well at this time. He states her pain is 1-2/10 at rest and 4/10 with movement. Pain medication given in anticipation for therapy. Pt stated that she had a good night. Awaiting breakfast at this time
--- NOTE | 2020-10-25 08:47 | NUR ---
Pt up with PT at this time
[2020-10-25] MEDS ORDERED: ASPI325T6 PO (09:51)
[2020-10-25] MEDS ORDERED: SEPTRA DS 8001 TAB PO (09:52)
[2020-10-25] MEDS ORDERED: VITAMIN C500 MG PO (09:52)
[2020-10-25] MEDS ORDERED: OSCAL 500 TAB500 MG PO (09:53)
[2020-10-25] MEDS ORDERED: ROXICODONE 55 MG/TAB PO (10:03)
--- NOTE | 2020-10-25 10:41 | NUR ---
Waste Disposal Attendant attended clinical rounds with the team and patient to discharge to [facility] today. No additional needs at this time.
--- NOTE | 2020-10-25 10:57 | NUR ---
Pt transferred over to [facility] room 335 via wheelchair. INT removed from right AC.
== END 2020-10-25 11:15 | DRG 522 ==
LOC: COL.ER 19:12 → SURG 19:45
PROVIDERS: Emergency Medicine; Orthopaedic Surgery; Physician Assistant; Student in an Organized Health Care Education/Training Program; ADMIT Hospitalist
PROC: 0SR904A Replacement of Right Hip Joint with Ceramic on Polyethylene Synthetic Substitute, Uncemented, Open Approach (ICD-10-PCS; principal; 2020-10-22 12:30)
DX: S72.001A Fracture of unspecified part of neck of right femur, initial encounter for closed fracture (principal); D62 Acute posthemorrhagic anemia; E87.1 Hypo-osmolality and hyponatremia; N39.0 Urinary tract infection, site not specified; N17.9 Acute kidney failure, unspecified; I10 Essential (primary) hypertension; E78.5 Hyperlipidemia, unspecified; E11.9 Type 2 diabetes mellitus without complications; S42.121A Displaced fracture of acromial process, right shoulder, initial encounter for closed fracture; F32.9 Major depressive disorder, single episode, unspecified; Z90.49 Acquired absence of other specified parts of digestive tract; B96.20 Unspecified Escherichia coli [E. coli] as the cause of diseases classified elsewhere; D53.9 Nutritional anemia, unspecified; E78.1 Pure hyperglyceridemia; T36.8X5A Adverse effect of other systemic antibiotics, initial encounter; Z87.19 Personal history of other diseases of the digestive system; Z79.4 Long term (current) use of insulin; Z79.82 Long term (current) use of aspirin; Z87.891 Personal history of nicotine dependence; Z88.6 Allergy status to analgesic agent; W19.XXXA Unspecified fall, initial encounter
CPT/HCPCS: 99223-AI; 99231-AI; 99232-AI; 99233-AI; 99239; A4314; A9284; C1713; C1776; J0690; J0696; J1815; J2250; J2270; J2704; J2795; J3010; J7030

== ENCOUNTER 2020-10-25 09:50 | Inpatient (IN) | payer OTHER ==
[~2020-10-25] VITALS: Ht 167.6 cm; Wt 78.4 kg
[~2020-10-25 09:50] MED LIST changes: +COZAAR100 MG PO; +EPA FISH OIL1 SGL PO; +GLUCOPHAGE1000 MG PO; +HCTZ 25MG TAB25 MG PO; +JARDIANCE10; +LOFIBRA160 MG PO; +NATURAL IRON65 MG; +TOPROL XL 50MG50 MG PO; +TOUJEO300 U/ML SQ
[2020-10-25] MEDS ORDERED: ASPI325T6 PO (09:51)
[2020-10-25] MEDS ORDERED: VITAMIN C500 MG PO (09:52)
[2020-10-25] MEDS ORDERED: SEPTRA DS 8001 TAB PO (09:52)
[2020-10-25] MEDS ORDERED: OSCAL 500 TAB500 MG PO (09:53)
[2020-10-25] MEDS ORDERED: ROXICODONE 55 MG/TAB PO (10:03)
[2020-10-25 17:41] VITALS: BP 133/60; PULSE 78; TEMP 98
--- NOTE | 2020-10-25 18:00 | NUR ---
Pt has done well since coming over to [facility]. PRN pain medication given. Discussed getting her home insulin here, is bringing it tomorrow. Pt worked with therapy, she stated it went good. No other needs
[2020-10-26 06:01] VITALS: BP 148/60; PULSE 77; TEMP 98.1
--- NOTE | 2020-10-26 11:05 | NUR ---
Patient reporing pain of 1/10 to her right hip following her morning Oxi. She has attended all her therapies this morning and is currently at Group Therapy. Dressing to right hip is CDI. Will continue to monitor.
[2020-10-26 17:50] VITALS: BP 148/72; PULSE 81; TEMP 98.7
--- NOTE | 2020-10-26 19:45 | NUR ---
Patient attended therapies this morning. She tolerated all meals, but did refuse to eat most of her lunch due to not being hungry. She normally does not eat three meals a day per patient. She had a visitor this afternoon. Currently she is resting in bed, call light in reach and bed alarm set. Reported off to night nurse.
--- NOTE | 2020-10-27 04:54 | NUR ---
PATIENT CURRENTLY RESTING IN BED. MEDICATED WITH ROXINAL FOR PAIN WITH GOOD EFFECT. BED ALARM ON, CALL LIGHT WITHIN REACH. AMBULATED TO BATHROOM WITH ONE ASSIST AND WALKER, WBAT TO RIGHT FOOT. RIGHT HIP DSG CLEAN DRY AND INTACT. WILL CONTINUE TO MONITOR.
[2020-10-27 05:13] VITALS: BP 158/63; PULSE 80; TEMP 98.3
[2020-10-27 07:18] LABS: CALCIUM 11.1 mg/dL (8.4-10.2); CREATININE, serum 1.46 (0.52-1.25)
--- NOTE | 2020-10-27 10:02 | NUR ---
Patient resting in bed, call light in reach and bed alarm set. Will continue to monitor.
--- NOTE | 2020-10-27 14:41 | NUR ---
Plan is to gain strength and go home with spouse Clinton . Assessment: Patient reports that that she resides locally and her DTR Ebony is a secondary contact [phone]. Patient reports that she is currently using a walker for mobility and a wheelchair. Patient shares that her PCP is Dr. Aviles, no other specialist for care. Patient reports that she does not have a POA. Prefers [facility] for medications. Patient denies having any care concerns. Action: Educated on supports and will continue follow for any additional needs. Declines [facility].
[2020-10-27 15:52] VITALS: BP 155/59; PULSE 79; TEMP 98.8
--- NOTE | 2020-10-27 19:30 | NUR ---
RECEIVED CHANGE OF SHIFT REPORT FROM DAY SHIFT NURSE.
--- NOTE | 2020-10-27 20:16 | NUR ---
Patient refused to change clothing and do oral cares with this nurse, but did say that her would help her with those things. Patient ate a late breakfast, lunch and 75% of supper. She has been having right inner leg pain and right hip pain and was given prn Oxi with some effect. She did not sleep well last night so this nurse called provider to get an order for Melatonin. See new order. Patient currently resting in bed, call light in reach and bed alarm set. She was tearful for a short period of time this afternoon stating that she was feeling sorry for herself. Patient's daughter visited and her mood improved.
[2020-10-27 21:50] VITALS: BP 145/66
[2020-10-28 05:35] VITALS: BP 130/70; PULSE 65; TEMP 97.9
--- NOTE | 2020-10-28 07:02 | NUR ---
CHANGE OF SHIFT REPORT GIVEN TO DAY SHIFT NURSE, YONATHAN GREENE.
--- NOTE | 2020-10-28 13:26 | NUR ---
Admission QIM scores were reviewed by the team. Code of 5 chosen for eating was determined by team discussion to be the most usual performance for this patient during the assessment period. Code of 3 chosen for walk 10 feet was determined by team discussion to be the most usual performance for this patient during the assessment period.--Katie Hyde, PD
--- NOTE | 2020-10-28 16:23 | NUR ---
Brick Tender met with the patient to follow up over the weekend. The patient was interested in appying for disablility. SW to provide the contact information for the [employer]. No other needs at this time.
[2020-10-28 17:40] VITALS: BP 146/64; PULSE 78; TEMP 98.1
--- NOTE | 2020-10-28 19:08 | NUR ---
RECEIVED CHANGE OF SHIFT REPORT FROM DAY SHIFT NURSE.
--- NOTE | 2020-10-28 20:00 | NUR ---
DENIES CHEST PAIN/SOA AT THIS TIME. DENIES NUMBNESS/TINGLING TO EXTREMITIES AT THIS TIME. BED ALARM ON WHEN IN BED. STATES FLEXERIL HAS HELPED WITH SPASMS TO RLE. REQUESTS FLEXERIL WHEN NEXT AVAILABLE. ENCOURAGED PATIENT TO ASK FOR ROXICODONE IF NEEDED DURING NIGHT.
--- NOTE | 2020-10-29 00:15 | NUR ---
PATIENT SLEEPING, DOES NOT WAKE WHEN DOOR TO ROOM IS OPENED BY STAFF. BREATHING OBSERVED EVEN AND NONLABORED. BED ALARM ON
[2020-10-29 03:49] VITALS: BP 141/60; PULSE 82; TEMP 98.6
--- NOTE | 2020-10-29 04:25 | NUR ---
PATIENT DOES NOT WAKEN FROM SLEEP WHEN STAFF ENTERS ROOM WITH BREATHING OBSERVED EVEN AND NONLABORED. BED ALARM ON.
--- NOTE | 2020-10-29 07:10 | NUR ---
CHANGE OF SHIFT REPORT GIVEN TO DAY SHIFT NURSE, TOÑA GREENE.
--- NOTE | 2020-10-29 08:56 | NUR ---
Patient resting in bed awaiting therapy this morning. Denies questions at this time.
--- NOTE | 2020-10-29 13:23 | NUR ---
Discussed patient's diagnosis of hyponatremia with patient and daughter and they were given educational material. Patient currently on 500 ml free water restriction due to low sodium. She refuses to drink any juices or milk products and reports that she did not like the poweraid drink blue in color this morning. Dietary was called and Lisbet was okay with her bringing in Diet Rootbeer for her to drink. Patient working with therapy at this time.
--- NOTE | 2020-10-29 15:54 | NUR ---
Patient's dropped off diet root beer for patient along with some light yogurt. Patient currently resting in bed, call light in reach and bed alarm set.
--- NOTE | 2020-10-29 15:55 | NUR ---
Customer Advocate met with the patient and the patient's , Clinton to schedule the family meeting for Monday 10/30 at 1320 with the understanding that it may be moved to 1345. They were in agreeance. SW collaborated the above information with HILLARY Wilson Director.
[2020-10-29 18:10] VITALS: BP 111/61; PULSE 72; TEMP 98.2
--- NOTE | 2020-10-29 19:00 | NUR ---
RECEIVED CHANGE OF SHIFT REPORT FROM DAY SHIFT NURSE. BED ALARM ON.
--- NOTE | 2020-10-29 20:00 | NUR ---
DENIES CHEST PAIN/SOA AT THIS TIME. DENIES NUMBNESS/TINGLING TO EXTREMITIES AT THIS TIME. REQUESTS PAIN MEDS WHEN NEXT AVAILABLE AND WANTS MUSCLE RELAXER WITH NIGHT TIME MEDS. BED ALARM ON WHEN IN BED. CONTINUES WITH FLUID RESTRICTIONS. DENIES ANY CONCERNS OR QUESTIONS AT THIS TIME.
--- NOTE | 2020-10-30 01:49 | NUR ---
PATIENT SLEEPING, DOESNOT WAKE WHEN STAFF ENTER ROOM. BREATHING NONLABORED AND EVEN. BED ALARM ON.
[2020-10-30 04:00] VITALS: BP 122/56; PULSE 66; TEMP 97.9
[2020-10-30 06:45] LABS: BASO # 0.1 (0.0-0.2); BASO % 0.9 % (0.0-2.0); EOS # 0.3 (0.0-0.7); EOS % 4.2 % (0-4.0); GRAN # 5.3 (1.4-6.5); GRAN % 66.3 % (42.2-75.2); LYMPH # 1.5 (1.2-3.4); LYMPH % 19.1 % (20.0-51.0); MEAN CELL VOLUME 87 fl (80.0-100.0); MEAN CORPUSCULAR HGB CONC 31 g/dl (33.0-37.0); MEAN PLATELET VOLUME 9.2 fl (7.4-10.4); MONO # 0.6 (0.1-0.6); MONO % 8.1 % (1.7-9.3); PLATELET COUNT 495 K/mm3 (130-400); RED BLOOD COUNT 2.75 M/mm3 (4.10-5.30); REDCELL DISTRIBUTION WIDTH-CV 14.5 % (11.5-14.5)
[2020-10-30 06:48] LABS: HEMOGLOBIN 7.4 g/dl (12.5-16.0); MEAN CORPUSCULAR HEMOGLOBIN 27 pg (27.0-31.0)
[2020-10-30 07:00] LABS: CALCIUM 10.5 mg/dL (8.4-10.2); CREATININE, serum 2.67 (0.52-1.25)
[2020-10-30 07:20] LABS: POTASSIUM 5.9 mmol/L (3.4-5.0)
--- NOTE | 2020-10-30 07:25 | NUR ---
CHANGE OF SHIFT REPORT GIVEN TO DAY SHIFT NURSE, KENNA GREENE.
--- NOTE | 2020-10-30 07:30 | NUR ---
Report called to JOHN Deutsch with hospitalist team regarding critical potassium level. ORders will be received and completed. Pt states she feels fine, no noticieable changes. Report received from JC Silverio. Will continue to monitor.
[2020-10-30 08:52] VITALS: BP 159/61; PULSE 90; TEMP 98.9
--- NOTE | 2020-10-30 09:03 | NUR ---
22G IV started to LFA and IVF initiated per orders, pt tolerated well, resting in bed between disturbances and states she is upset there was not any coffee on her breakfast tray, called kitchen to update them of this. PRN pain meds given per request for RLE pain, Aquacel removed per orders, pt tolerated well and minimal drainage noted so kept dressing off. Will continue to monitor.
[2020-10-30 10:17] LABS: COLLECTION METHOD CLEAN CATCH
[2020-10-30 10:29] LABS: PH 5 (5-8); SQUAMOUS EPITHELIAL 0-2 /hpf; URINE APPEARANCE Clear; URINE BACTERIA None Seen /hpf; URINE BILIRUBIN Negative (NEGATIVE); URINE BLOOD Negative (NEGATIVE); URINE COLOR Yellow; URINE GLUCOSE Negative (NEGATIVE); URINE KETONE Negative (NEGATIVE); URINE LEUKOCYTE ESTERASE Negative (NEGATIVE); URINE NITRATE Negative (NEGATIVE); URINE PROTEIN(semi-quant) Negative (NEGATIVE); URINE RBC 0-2 /hpf; URINE UROBILINOGEN Negative (NEGATIVE)
--- NOTE | 2020-10-30 14:31 | NUR ---
Hydraulic Tester attended team meeting with the patient and her daughter. The patient's joined the meeting. Also in attendance were Katie [facility] Director, PT/OT present. PT/OT discussed the patient's progress. The team recommends a tentative discharge on Wednesday, 11/01 with outpatient PT. SW provided list of OP PT locations. This SW to follow up with the patient regarding choice of OP PT location.
[2020-10-30 14:35] LABS: CALCIUM 10.6 mg/dL (8.4-10.2); CREATININE, serum 2.68 (0.52-1.25); POTASSIUM 5.4 mmol/L (3.4-5.0)
[2020-10-30 15:39] VITALS: BP 138/60; PULSE 78; TEMP 98.2
--- NOTE | 2020-10-30 18:23 | NUR ---
Pt has done well over shift, advanced to Mod I and tolerating well. PRN pain meds given per request. Will give bedside shift report to nightshift nurse who will resume care.
--- NOTE | 2020-10-31 04:55 | NUR ---
PATIENT SLEEP WELL THS SHIFT. OXYCONE X 2 GIVEN FOR PAIN WILL GOOD EFFECT. AMBULATE WITH SBA TO BR. IV FLUID NS INFUSING. WILL CONTINUE TO MONITOR.
[2020-10-31 05:32] VITALS: BP 142/60; PULSE 73; TEMP 97.4
[2020-10-31 06:37] LABS: CALCIUM 9.4 mg/dL (8.4-10.2); CREATININE, serum 1.45 (0.52-1.25); POTASSIUM 5.1 mmol/L (3.4-5.0)
--- NOTE | 2020-10-31 14:41 | NUR ---
Valve Maker met with the patient to discuss OP PT options. The patient chose [facility] on [address] VELIA contacted Haritha at [facility] and she would like to contact the patient to set up first appointment. VELIA faxed demographics and clinical information to Haritha. VELIA collaborated the above information with the patient's nurse.
[2020-10-31] MEDS ORDERED: FERROUS SU325 MG/TAB PO (15:24)
[2020-10-31] MEDS ORDERED: TYLENOL 325MG325 MG PO (15:25)
[2020-10-31 16:53] VITALS: BP 151/61; PULSE 76; TEMP 98.5
--- NOTE | 2020-10-31 21:00 | NUR ---
PT RESTING IN BED. IV NS AT 60CC/HR TO LT ARM PER PUMP. PT MOD I IN ROOM W/WALKER. MANAGING WELL. PAIN CONTROLLED PER PAIN MED. MAINTAINING PAIN LEVEL 2-3/10. SEE SHIFT ASSESSMENT FOR FURTHER INFO. CALL LIGHT IN REACH.
--- NOTE | 2020-11-01 02:40 | NUR ---
NEW ORDER FOR TRANSFER TO ICU. IVF'S DECREASED TO 75CC/HR.
[2020-11-01 05:43] VITALS: BP 145/61; PULSE 66; TEMP 98
[2020-11-01 06:55] LABS: CALCIUM 9.2 mg/dL (8.4-10.2); CREATININE, serum 1.26 (0.52-1.25); MAGNESIUM 2.2 mg/dL (1.6-2.3); POTASSIUM 5.2 mmol/L (3.4-5.0)
[2020-11-01 06:57] LABS: BASO # 0.1 (0.0-0.2); EOS # 0.3 (0.0-0.7); GRAN # 4.9 (1.4-6.5); GRAN % 62.2 % (42.2-75.2); LYMPH # 1.9 (1.2-3.4); LYMPH % 23.7 % (20.0-51.0); MEAN CELL VOLUME 90 fl (80.0-100.0); MEAN CORPUSCULAR HGB CONC 31 g/dl (33.0-37.0); MEAN PLATELET VOLUME 9.2 fl (7.4-10.4); MONO # 0.7 (0.1-0.6); MONO % 8.2 % (1.7-9.3)
[2020-11-01 06:58] LABS: HEMATOCRIT 24.3 % (37.0-47.0); HEMOGLOBIN 7.5 g/dl (12.5-16.0); MEAN CORPUSCULAR HEMOGLOBIN 28 pg (27.0-31.0); PLATELET COUNT 613 K/mm3 (130-400)
--- NOTE | 2020-11-01 08:00 | NUR ---
PATIENT IS A&O. VSS. C/O PAIN IN RLE RATED AT 5/10. GAVE PRN PAIN MEDS WITH AM MEDS. RIGHT HIP INCISION IS WELL APPROXIMATED. HEAD TO TOE ASSESSMENT WNL. PATIENT PLANNING TO DISCHARGE HOME LATER TODAY. IV FLUIDS STILL INFUSING INTO LEFT FORARM IV VIA PUMP AT 60CC/HR. BREAKFAST TRAY AT BEDSIDE. AM BS WAS 108. NO OTHER NEEDS AT THIS TIME. CALL LIGHT IN REACH.
[2020-11-01] MEDS ORDERED: ROXICODONE 55 MG/TAB PO (09:24)
[2020-11-01] MEDS ORDERED: COZAAR 50MG50 MG/TAB PO (09:26)
--- NOTE | 2020-11-01 10:17 | NUR ---
The patient to discharge home with family today, 11/01 with OP PT. The patient will be doing her OP PT at [facility] at [address] [place] [address]. SW faxed discharge orders. There are no additional needs at this time.
--- NOTE | 2020-11-01 11:50 | NUR ---
PATIENT DISCHARGING HOME VIA WC TO PERSONAL VEHICLE WHERE IS WAITING. GAVE DISCHARGE INSTRUCTIONS, E-SCRIPTS SENT, AND F/U APTS DISCUSSED. DC'D LEFT FORARM IV, COVERED SITE WITH GAUZE & COBAN. PATIENT IS DRESSED, PACKED AND DISCHARGED.
== END 2020-11-01 11:50 | disposition home or self-care (01) | DRG 560 ==
PROVIDERS: Physician Assistant; ADMIT Internal Medicine
DX: S72.031D Displaced midcervical fracture of right femur, subsequent encounter for closed fracture with routine healing (principal); N39.0 Urinary tract infection, site not specified; N17.9 Acute kidney failure, unspecified; E87.1 Hypo-osmolality and hyponatremia; E87.2 Acidosis; E11.65 Type 2 diabetes mellitus with hyperglycemia; S42.124D Nondisplaced fracture of acromial process, right shoulder, subsequent encounter for fracture with routine healing; B96.20 Unspecified Escherichia coli [E. coli] as the cause of diseases classified elsewhere; I10 Essential (primary) hypertension; K42.9 Umbilical hernia without obstruction or gangrene; D64.9 Anemia, unspecified; F32.9 Major depressive disorder, single episode, unspecified; R26.89 Other abnormalities of gait and mobility; F17.210 Nicotine dependence, cigarettes, uncomplicated; E78.5 Hyperlipidemia, unspecified; W01.0XXD Fall on same level from slipping, tripping and stumbling without subsequent striking against object, subsequent encounter; Y92.197 Garden or yard of other specified residential institution as the place of occurrence of the external cause; Z79.4 Long term (current) use of insulin; Z79.82 Long term (current) use of aspirin; Z73.6 Limitation of activities due to disability; Z96.641 Presence of right artificial hip joint; Z88.5 Allergy status to narcotic agent
CPT/HCPCS: 99222-AI; 99231-AI; 99232-AI; 99233-AI; 99239; J1815; J7030

== ENCOUNTER 2021-06-23 15:46 | Inpatient (IN) | payer OTHER ==
[~2021-06-23] VITALS: Ht 167.6 cm; Wt 77.3 kg
[~2021-06-23 15:46] MED LIST changes: +ASPI325T6 PO; +COZAAR 50MG50 MG/TAB PO; +FERROUS SU325 MG/TAB PO; +OSCAL 500 TAB500 MG PO; +ROXICODONE 55 MG/TAB PO; +SEPTRA DS 8001 TAB PO; +TYLENOL 325MG325 MG PO; +VITAMIN C500 MG PO
[2021-06-23] MEDS ORDERED: COZAAR100 MG PO (16:11)
[2021-06-23] MEDS ORDERED: LOTENSIN40 MG PO (16:13)
[2021-06-23] MEDS ORDERED: HCTZ 25MG TAB25 MG PO (16:14)
[2021-06-23 16:31] LABS: BASO # 0.1 K/mm3 (0.0-0.2); EOS # 0.6 K/mm3 (0.0-0.7); EOS % 5.7 % (0.0-4.0); GRAN # 4.6 K/mm3 (1.4-6.5); HEMATOCRIT 38.6 % (37.0-47.0); HEMOGLOBIN 12.3 g/dl (12.5-16.0); LYMPH # 3.8 K/mm3 (1.2-3.4); LYMPH % 38.2 % (20.0-51.0); MEAN CELL VOLUME 88 fl (80.0-100.0); MEAN CORPUSCULAR HEMOGLOBIN 28 pg (27-31); MEAN CORPUSCULAR HGB CONC 32 g/dl (33.0-37.0); MEAN PLATELET VOLUME 9.8 fl (7.4-10.4); MONO # 0.8 K/mm3 (0.1-0.6); MONO % 7.9 % (1.7-9.3); PLATELET COUNT 425 K/mm3 (130-400); RED BLOOD COUNT 4.39 M/mm3 (4.10-5.30); REDCELL DISTRIBUTION WIDTH-CV 13.8 % (11.5-14.5)
[2021-06-23 16:32] LABS: PROTHROMBIN TIME 10.9 SECONDS (9.7-12.8)
[2021-06-23 16:50] LABS: BILIRUBIN,TOTAL 0.4 mg/dL (0.2-1.2); CALCIUM 9.9 mg/dL (8.4-10.2); CREATININE, serum 1.36 mg/dL (0.57-1.11); POTASSIUM 4.5 mmol/L (3.5-4.5); TOTAL PROTEIN 8.5 gm/dL (6.2-8.1)
[2021-06-23 20:13] VITALS: BP 145/70; PULSE 73; TEMP 97.6
[2021-06-23 20:31] LABS: COLLECTION METHOD CATHETER
[2021-06-23 20:45] LABS: PH 6 (5-8); SQUAMOUS EPITHELIAL 0-2 /hpf (0-10); URINE APPEARANCE Hazy (CLEAR/HAZY); URINE BACTERIA Moderate /hpf (NONE SEEN); URINE BILIRUBIN Negative (NEGATIVE); URINE BLOOD Negative (NEGATIVE); URINE COLOR Yellow (YELLOW); URINE GLUCOSE 3+ (NEGATIVE); URINE KETONE Negative (NEGATIVE); URINE LEUKOCYTE ESTERASE 2+ (NEGATIVE); URINE NITRATE Positive (NEGATIVE); URINE PROTEIN(semi-quant) 1+ (NEGATIVE); URINE RBC 0-2 /hpf (0-2); URINE UROBILINOGEN Negative (NEGATIVE)
[2021-06-23 23:00] VITALS: BP 157/73; PULSE 67; TEMP 97.7
--- NOTE | 2021-06-24 00:48 | NUR ---
PT ARRIVES TO MEDICAL FLOOR ROOM 305 VIA ED STAFF AT 2000 BY BED. PT A/OX4,ABLE TO EXPRESS NEEDS, 02 ROOM AIR, PT IN OBVIOUS DISTRESS, SCREAMING AND GROANING IN PAIN, REPORTS PAIN 10/10 TO LEFT HIP. LEFT HIP SWOLLEN NO BRUSING NOTED, PT UNABLE TO ROTATE SO THIS NURSE COULD NOT FULLY ASSESS SURROUNDING AREAS. N/S INFUSING AT 125CC/HR TO LEFT IV. MED REC COMPLETE. PT PROVIDED SANDWICH BOX SHE WILL BE NPO OOOO FOR POSSIBLE ELIZABETH 06/24/21. PT HYPERTENSIVE, AFEBRILE. PT ORIENTED TO FLOOR AND HOSPITAL POLICY. CONTACT/DROPLET PRECAUTIONS IN PLACE. ALL QUESTIONS/CONCERNS ANSWERED. ALL NEEDS MET AT THIS TIME. CALL LIGHT WITHIN REACH.
[2021-06-24 03:04] VITALS: BP 171/78; PULSE 63; TEMP 98
[2021-06-24 07:02] LABS: BASO # 0.1 K/mm3 (0.0-0.2); BASO % 0.8 % (0.0-2.0); EOS # 0.2 K/mm3 (0.0-0.7); EOS % 2.7 % (0.0-4.0); GRAN # 5.6 K/mm3 (1.4-6.5); GRAN % 66.4 % (42.2-75.2); HEMATOCRIT 37.5 % (37.0-47.0); LYMPH # 1.8 K/mm3 (1.2-3.4); LYMPH % 21.4 % (20.0-51.0); MEAN CELL VOLUME 87 fl (80.0-100.0); MEAN CORPUSCULAR HEMOGLOBIN 28 pg (27-31); MEAN CORPUSCULAR HGB CONC 32 g/dl (33.0-37.0); MEAN PLATELET VOLUME 9.3 fl (7.4-10.4); MONO # 0.6 K/mm3 (0.1-0.6); MONO % 7.6 % (1.7-9.3); PLATELET COUNT 373 K/mm3 (130-400); RED BLOOD COUNT 4.33 M/mm3 (4.10-5.30); REDCELL DISTRIBUTION WIDTH-CV 13.7 % (11.5-14.5)
[2021-06-24 07:16] LABS: CALCIUM 9.7 mg/dL (8.4-10.2); CREATININE, serum 0.94 mg/dL (0.57-1.11); MAGNESIUM 2.2 mg/dL (1.6-2.6); POTASSIUM 4.5 mmol/L (3.5-4.5)
[2021-06-24 07:43] VITALS: BP 165/64; PULSE 61; TEMP 97.9
--- NOTE | 2021-06-24 07:43 | NUR ---
PT HAD UNEVENTFUL NIGHT THIS SHIFT, PT CONTINUES TO REPORT PAIN /, MEDICATION ADMINSTERED ORDERED, NPO STATUS OF [address], ICE ON LEFT HIP PLACED, PT REFUSED AMRIT MCCABE AND SCD'S, THIS NURSE REVIEWED IMPORTANCE OF CLOT PREVENTION. PT VERBALIES UNDERSTANDING. ALL NEEDS MET THIS SHIFT. CALL LIGHT WITHIN REACH.
[2021-06-24 12:14] VITALS: BP 134/68; PULSE 64; TEMP 97.8
--- NOTE | 2021-06-24 13:17 | NUR ---
SW attempted to call patient's room and patient's with no answer to either.
[2021-06-24 15:59] VITALS: BP 144/57; PULSE 67; TEMP 97.7
[2021-06-24 19:08] VITALS: BP 150/70; PULSE 63; TEMP 98
[2021-06-24 19:36] VITALS: BP 153/87; PULSE 68; TEMP 97.7
[2021-06-25 00:27] VITALS: BP 135/64; PULSE 65; TEMP 97.8
[2021-06-25 04:25] VITALS: BP 156/71; PULSE 66; TEMP 97.9
--- NOTE | 2021-06-25 06:38 | NUR ---
NO NEW ISSUES NOTED OR REPORTED BY PATIENT THROUGHOUT THE NIGHT. V/S STABLE. PRN PAIN MEDICATION ADMINISTERED PER ORDERS REQUESTED BY PATIENT.
[2021-06-25 06:51] LABS: HEMOGLOBIN 10.2 g/dl (12.5-16.0)
[2021-06-25 06:52] LABS: HEMATOCRIT 31.4 % (37.0-47.0)
[2021-06-25 08:57] VITALS: BP 128/64; PULSE 76; TEMP 97.6
[2021-06-25 12:06] VITALS: BP 137/64; PULSE 66; TEMP 98.2
--- NOTE | 2021-06-25 14:34 | NUR ---
Tree Killer contacted patient by phone to discuss discharge planning as she is in isolation for the [facility]. Patient lives in [place] with her , Clinton (ph#[phone]) and sees Dr. Snyder for primary care. Patient obtains medications from [facility] and does not normally use any DME, however reports she has a cane from the last time she had a fractured hip. Patient is employed at [employer] and is normally independent with ADLS. Patient does not have Advance Directives and her , Clinton would be her legal next of kin and she also has two children, Deandra and Ebony. VELIA reviewed OT recommendation for [facility] and patient is agreeable to this. SW contacted Katie, [facility] Director and gave referral. Discharge Plan: [facility] screen
[2021-06-25 16:08] VITALS: BP 126/59; PULSE 69; TEMP 98.8
--- NOTE | 2021-06-25 18:35 | NUR ---
JUDY D/C, RN REVIEWED D/C PAPERWORK WITH PATIENT. PATIENT VERBALIZED UNDERSTANDING OF PAPERWORK. PATIENT WHEELED OUT IN W/C TO CAR.
[2021-06-25 21:00] VITALS: BP 137/62; PULSE 75; TEMP 98.6
[2021-06-26 00:29] VITALS: BP 115/59; PULSE 70; TEMP 98.2
[2021-06-26 03:55] VITALS: BP 133/66; PULSE 69; TEMP 98.5
[2021-06-26 06:11] LABS: HEMOGLOBIN 10.3 g/dl (12.5-16.0)
[2021-06-26 06:21] LABS: HEMATOCRIT 32.4 % (37.0-47.0)
[2021-06-26 06:26] LABS: CALCIUM 9.7 mg/dL (8.4-10.2); CREATININE, serum 1.68 mg/dL (0.57-1.11); MAGNESIUM 2.1 mg/dL (1.6-2.6); POTASSIUM 4.4 mmol/L (3.5-4.5)
[2021-06-26 07:16] VITALS: BP 135/63; PULSE 69; TEMP 98.7
--- NOTE | 2021-06-26 09:05 | NUR ---
ASSESSMENT COMPLETE FOR THIS SHIFT. PT IN BED LOOKING VERY UNCOMFORTABLE. PT COMPLAINED OF LEFT HIP PAIN. PT GIVEN 1MG MORPHINE PER ORDERS BECAUSE IT WAS TOO EARLY FOR THE ROXICODONE. PT FELT THE 1GM OF MORPHINE AND ROXICODONE WERE INEFFECTIVE. HOSPITALIST CALLED FOR STRONGER PAIN MEDICATIONS. JOHN SHELLEY ORDERED 2MG OF MORPHINE. PT FELT THE 2MG OF MORPHINE WAS MUCH MORE EFFECTIVE THEN BOTH THE 1GM OF MORPHINE OR THE ROXICODONE. PT FELT UNABLE TO GET UP MOST OF SHIFT, DUE TO PAIN. AROUND 0530HRS PT WANTED TO TRY TO GET UP TO THE BEDSIDE COMMODE TO HAVE A BOWEL MOVEMENT, INSTEAD OF TRYING TO USE A BEDPAN (WHICH SHE FELT WOULD BE TOO PAINFUL). PT SLOWLY, BUT SUCCESSFULLY ABLE TO GET TO AND USE THE BEDSIDE COMMODE AFTER GETTING 2MG OF MORPHINE. PT EXPRESSED NO OTHER NEEDS AT THIS TIME. CALL LIGHT WITHIN REACH.
[2021-06-26 11:15] VITALS: BP 151/63; PULSE 70; TEMP 97.4
--- NOTE | 2021-06-26 15:26 | NUR ---
Scheduled medications given. Shift assessment performed. Patient currently on RA. VSS. Patient A&O. PRN Ultram and Morphine given 1 time for aching left hip pain. Ice pack in place. Patient states that these interventions have helped. Patient currenly lying in bed resting. SCD's on. Incentive spirometer in use every hour. Patient denies any further pain, discomfort, SOA, or further needs at this time. Call light in reach. Fall percations in place.
[2021-06-26 16:10] VITALS: BP 149/70; PULSE 77; TEMP 98.1
--- NOTE | 2021-06-26 17:39 | NUR ---
PRN Tramadol given for aching pain in left hip.
[2021-06-26 21:10] VITALS: BP 149/66; PULSE 77; TEMP 98.7
[2021-06-27 00:28] VITALS: BP 124/62; PULSE 69; TEMP 98.2
[2021-06-27 05:19] VITALS: BP 144/71; PULSE 67; TEMP 97.6
[2021-06-27 06:20] LABS: CALCIUM 9.3 mg/dL (8.4-10.2); CREATININE, serum 0.93 mg/dL (0.57-1.11); MAGNESIUM 1.8 mg/dL (1.6-2.6)
[2021-06-27 09:15] VITALS: BP 143/61; PULSE 77; TEMP 98.8
--- NOTE | 2021-06-27 10:40 | NUR ---
Continuing Education Specialist spoke with Katie, [facility] Director who advised insurance has denied, however she will be working with patient on submitting an appeal. SW also left a message for Manisha at [facility] [place] to review referral in case determination from insurance is not overturned.
[2021-06-27 11:42] VITALS: BP 132/65; PULSE 66; TEMP 98.8
[2021-06-27 16:37] VITALS: BP 138/61; PULSE 72; TEMP 98.1
[2021-06-27 19:20] VITALS: BP 149/58; PULSE 79; TEMP 99.3
[2021-06-28] VITALS (7 sets, daily range): BP systolic 115–167; BP diastolic 55–68; PULSE 59–77; TEMP 97.6–99.4
[2021-06-28 06:03] LABS: BASO # 0.1 K/mm3 (0.0-0.2); BASO % 0.6 % (0.0-2.0); EOS # 0.4 K/mm3 (0.0-0.7); EOS % 4.8 % (0.0-4.0); GRAN % 67.8 % (42.2-75.2); LYMPH # 1.6 K/mm3 (1.2-3.4); LYMPH % 17.7 % (20.0-51.0); MEAN CELL VOLUME 88 fl (80.0-100.0); MEAN CORPUSCULAR HGB CONC 32 g/dl (33.0-37.0); MEAN PLATELET VOLUME 9.1 fl (7.4-10.4); MONO # 0.8 K/mm3 (0.1-0.6); MONO % 8.5 % (1.7-9.3); PLATELET COUNT 398 K/mm3 (130-400); RED BLOOD COUNT 3.29 M/mm3 (4.10-5.30); REDCELL DISTRIBUTION WIDTH-CV 13.5 % (11.5-14.5)
--- NOTE | 2021-06-28 06:11 | NUR ---
PT c/o pain in lt hip 10/31, ultram given @HS, pt reports oxycodone "does not help her" gave IV morphine x1 d/t pt c/o not getting any sleep, ultram and tylenol given this am, lopez catheter dc'd, BSC placed on side of bed.
[2021-06-28 06:13] LABS: CALCIUM 9.1 mg/dL (8.4-10.2); CREATININE, serum 1.08 mg/dL (0.57-1.11)
[2021-06-28 06:15] LABS: HEMATOCRIT 28.9 % (37.0-47.0); HEMOGLOBIN 9.1 g/dl (12.5-16.0); MEAN CORPUSCULAR HEMOGLOBIN 28 pg (27-31)
--- NOTE | 2021-06-28 09:13 | NUR ---
PT ASSESSED. NO COMPLAINTS OF PAIN OR DYSPNEA. NO SIGNS OR SYMPTOMS OF DISTRESS. CALL LIGHT WITHIN REACH
[2021-06-29 04:30] VITALS: BP 143/73; PULSE 63; TEMP 97.6
[2021-06-29 06:36] LABS: BASO # 0.1 K/mm3 (0.0-0.2); BASO % 0.6 % (0.0-2.0); EOS # 0.4 K/mm3 (0.0-0.7); EOS % 4.3 % (0.0-4.0); GRAN # 5.6 K/mm3 (1.4-6.5); GRAN % 68.1 % (42.2-75.2); LYMPH # 1.4 K/mm3 (1.2-3.4); MEAN CELL VOLUME 87 fl (80.0-100.0); MEAN CORPUSCULAR HGB CONC 32 g/dl (33.0-37.0); MEAN PLATELET VOLUME 8.9 fl (7.4-10.4); MONO # 0.8 K/mm3 (0.1-0.6); MONO % 9.3 % (1.7-9.3); PLATELET COUNT 407 K/mm3 (130-400); RED BLOOD COUNT 3.41 M/mm3 (4.10-5.30); REDCELL DISTRIBUTION WIDTH-CV 13.4 % (11.5-14.5)
[2021-06-29 06:43] LABS: HEMATOCRIT 29.7 % (37.0-47.0); HEMOGLOBIN 9.4 g/dl (12.5-16.0); MEAN CORPUSCULAR HEMOGLOBIN 28 pg (27-31)
[2021-06-29 06:57] LABS: CALCIUM 9.5 mg/dL (8.4-10.2); CREATININE, serum 0.97 mg/dL (0.57-1.11); POTASSIUM 4.1 mmol/L (3.5-4.5)
[2021-06-29 09:10] VITALS: BP 158/68; PULSE 64; TEMP 97.5
--- NOTE | 2021-06-29 09:12 | NUR ---
PT ASSESSED. NO COMPLAINTS OF PAIN OR DYSPNEA. NO SIGNS OR SYMPTOMS OF DSITRESS. CALL LIGHT WITHIN REACH
[2021-06-29 12:15] VITALS: BP 156/64; PULSE 64; TEMP 98
[2021-06-29 16:35] VITALS: BP 173/73; PULSE 69; TEMP 98.4
[2021-06-29 20:53] VITALS: BP 157/68; PULSE 74; TEMP 98.8
--- NOTE | 2021-06-29 22:20 | NUR ---
ALERT ANDOX4. PAIN IN LEFT HIP, TRAMDOL CONTROLLING FAIR, TYL SCHEDULED AND GIVEN. BS TX OF 227. HIP C/D/I. POC DISCUSSED. CALL LIGHT WI REACH. NEEDS MET.
[2021-06-30 00:15] VITALS: BP 153/66; PULSE 66; TEMP 98.9
[2021-06-30 03:49] VITALS: BP 147/62; PULSE 66; TEMP 98.6
[2021-06-30 08:52] VITALS: BP 161/62; PULSE 67; TEMP 98.4
[2021-06-30 11:57] VITALS: BP 156/60; PULSE 64; TEMP 98.3
[2021-06-30 16:00] VITALS: BP 172/68; PULSE 74; TEMP 98.2
--- NOTE | 2021-06-30 16:21 | NUR ---
Oyster Planter spoke with Katie, [facility] Director and even with appeal, insurance is still denying. SW followed up with patient who is tearful and expressed frustration. Patient states she wants to just go home at time of discharge. Discharge Plan: Home, SW will follow up on Home Health services
[2021-06-30 20:22] VITALS: BP 164/67; PULSE 72; TEMP 98.5
--- NOTE | 2021-06-30 23:32 | NUR ---
ALERT AND OX3. DENIES SOA, CHEST PAIN OR DIZZY. PAIN CONTROLLED W TRAMDOL. PLANNING ON DC TOMORROW WITH H/H WAS NOT ACCEPTED. POC DISCUSSED. CALL LIGHT WI REACH.
[2021-07-01 00:04] VITALS: BP 148/54; PULSE 67; TEMP 97.9
--- NOTE | 2021-07-01 05:34 | NUR ---
PT RESTED THOUGH THE NIGHT WITHOUT INCIDENT. CALL LIGHTS WI REACH.
[2021-07-01 05:41] VITALS: BP 146/63; PULSE 61; TEMP 97.9
[2021-07-01 08:17] VITALS: BP 151/67; PULSE 63; TEMP 97.8
--- NOTE | 2021-07-01 09:30 | NUR ---
PT PLEASANT, AOX4, DENIES PAIN, REFUSE HOT WATER AND PRUNES AND AMRIT HOSE. MEDS GIVEN PER ORDER, ASSESSMENT PERFORMED, CALL LIGHT WITHIN REACH, ATE 100% BREAKFAST, NO OTHER NEEDS
[2021-07-01 12:54] VITALS: BP 155/67; PULSE 61; TEMP 97.9
[2021-07-01] MEDS ORDERED: ASPI325T6 PO (15:15)
[2021-07-01 15:25] VITALS: BP 162/64; PULSE 67; TEMP 98.5
[2021-07-01] MEDS ORDERED: ULTRAM 50MG TAB50 MG PO (15:44)
--- NOTE | 2021-07-01 16:15 | NUR ---
Medical Examiner collaborated with PT/OT who both advised discharge home with outpatient PT was an acceptable plan for patient. VELIA provided this update to Hospitalist who will discharge patient today. VELIA contacted patient who would like referral for outpatient sent to [facility]. Patient does not want an appointment scheduled until she knows her insurance will approve outpatient PT. VELIA contacted [facility] and faxed referral/discharge orders. Discharge Plan: Home with outpatient PT
--- NOTE | 2021-07-01 18:11 | NUR ---
PT ESCORTED OUT VIA WHEELCHAIR. DISCHARGE EDUCATION PROVIDED, MEDICATIONS GIVEN, NO OTHER NEEDS
== END 2021-07-01 18:12 | disposition home or self-care (01) | DRG 521 ==
LOC: COL.ER 15:46 → MEDICAL 16:22
PROVIDERS: Nurse Practitioner Primary Care; Orthopaedic Surgery; Student in an Organized Health Care Education/Training Program; ADMIT Internal Medicine
PROC: 0SRB03Z Replacement of Left Hip Joint with Ceramic Synthetic Substitute, Open Approach (ICD-10-PCS; principal; 2021-06-24 14:30)
DX: S72.012A Unspecified intracapsular fracture of left femur, initial encounter for closed fracture (principal); U07.1 COVID-19; N39.0 Urinary tract infection, site not specified; E78.5 Hyperlipidemia, unspecified; F32.A Depression, unspecified; I12.9 Hypertensive chronic kidney disease with stage 1 through stage 4 chronic kidney disease, or unspecified chronic kidney disease; N18.30 Chronic kidney disease, stage 3 unspecified; E11.22 Type 2 diabetes mellitus with diabetic chronic kidney disease; B96.20 Unspecified Escherichia coli [E. coli] as the cause of diseases classified elsewhere; Z96.641 Presence of right artificial hip joint; W18.30XA Fall on same level, unspecified, initial encounter; Y93.89 Activity, other specified; Y92.008 Other place in unspecified non-institutional (private) residence as the place of occurrence of the external cause; Z87.891 Personal history of nicotine dependence; Z79.4 Long term (current) use of insulin
CPT/HCPCS: 99223-AI; 99231-AI; 99232-AI; 99233-AI; A4314; A9284; C1713; C1776; J0690; J0696; J1170; J1815; J2250; J2270; J2704; J3010; J7030; J7120